=== PATIENT | female | born 1995 | race Caucasian/White ===

== ENCOUNTER 2019-05-11 07:52 | Outpatient (CLI) | payer OTHER ==
--- NOTE | 2019-05-11 10:42 | MRI ---
MRI BRAIN WITH AND WITHOUT IV CONTRAST: Date: 05/11/19 HISTORY: Migraine with aura. FINDINGS: No restricted diffusion is seen. No evidence of infarct, hemorrhage, mass, midline shift, or abnormal extra-axial fluid collections are seen. The ventricular size is normal and the basilar cisterns are patent. No blood products are noted on the gradient echo sequences. No signal abnormalities are noted on the highly sensitive FLAIR images. No evidence of abnormal postcontrast enhancement is seen. The ventricular size is normal and the basilar cisterns are patent. There is minimal mucosal disease in t he paranasal sinuses. IMPRESSION: Normal MRI of the brain. POS: [facility]
== END 2019-05-11 07:53 | disposition home or self-care (01) ==
LOC: SCSMRI 07:52
PROVIDERS: ATTEND Nurse Practitioner Acute Care
DX: G43.119 Migraine with aura, intractable, without status migrainosus (principal)
CPT/HCPCS: 70553

== ENCOUNTER 2020-02-18 09:37 | Outpatient (CLI) | payer OTHER ==
--- NOTE | 2020-02-22 14:10 | EKG ---
Test Reason : Blood Pressure : / mmHG Vent. Rate : 096 BPM Atrial Rate : 096 BPM P-R Int : 160 ms QRS Dur : 094 ms QT Int : 342 ms P-R-T Axes : 043 063 033 degrees QTc Int : 432 ms Normal sinus rhythm Normal ECG No previous ECGs available Confirmed by MURPHY SALCEDO M.D. ([id number]) on 02/22/2020 2:10:20 PM Referred By: TIEN Confirmed By:MURPHY SALCEDO M.D.
== END 2020-02-18 09:38 | disposition home or self-care (01) ==
LOC: EKG 09:37
PROVIDERS: ATTEND Pediatrics
DX: R55 Syncope and collapse (principal)
CPT/HCPCS: 93005; 93010